=== PATIENT | male | born 1970 | race Caucasian/White ===

== ENCOUNTER 2018-11-27 12:11 | Outpatient (CLI) ==
--- NOTE | 2018-11-27 13:16 | US ---
EXAM: Ultrasound venous Doppler left lower extermity HISTORY: Pain left thigh COMPARISON: None TECHNIQUE: Venous duplex ultrasound of the left lower extremity was performed using color, underwood-scal e, and Doppler flow imaging. FINDINGS: There is normal color flow and compression of the left common femoral, greater saphenous, profunda femoral, femoral, popliteal, peroneal, posterior tibial, and anterior tibial veins without e vidence of intraluminal thrombus. No reflux is identified. IMPRESSION: No left lower extremity deep venous thrombosis.
== END 2018-11-27 12:12 | disposition home or self-care (01) ==
LOC: RAD 12:11
PROVIDERS: ATTEND Nurse Practitioner Family
DX: M79.652 Pain in left thigh (principal)